=== PATIENT | male | born 1990 | race Asian ===

== ENCOUNTER 2017-04-01 00:01 | Emergency (ER) | payer OTHER ==
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
--- NOTE | 2017-04-01 12:09 | Diagnostic Imaging Report ---
CT scan cervical spine History: Pain, trauma Total DLP equals 355 CTDI equals 18.4 Axial sections were obtained through the cervical spine region. Additional sagittal and coronal reformatted images are provided. No focal bony lesions are seen. Specifically, no fractures are identified. There is limited visualization of the margins of the cervical spinal cord. No obvious extradural soft tissue abnormalities are seen. The prevertebral soft tissues appear normal. Impression: No acute abnormalities
== END 2017-04-01 04:15 | disposition home or self-care (01) ==
LOC: ER 00:01
DX: S16.1XXA Strain of muscle, fascia and tendon at neck level, initial encounter (principal); S00.03XA Contusion of scalp, initial encounter; S00.01XA Abrasion of scalp, initial encounter; V89.2XXA Person injured in unspecified motor-vehicle accident, traffic, initial encounter; Y93.89 Activity, other specified; Y92.488 Other paved roadways as the place of occurrence of the external cause; Y99.8 Other external cause status
CPT/HCPCS: 70450-TC; 72125-TC; Z7502